=== PATIENT | male | born 1970 | race African-American/Black ===

== ENCOUNTER 2020-10-25 19:48 | Emergency (ER) | payer MEDICAID ==
[~2020-10-25] VITALS: Ht 175.3 cm; Wt 74.0 kg
[2020-10-25] MEDS ORDERED: BICT1TAB PO (19:59)
[2020-10-25] MEDS ORDERED: FOLI0.8C PO (20:00)
[2020-10-25] MEDS ORDERED: OXYC10TA PO (20:00)
[2020-10-25] MEDS ORDERED: ALBU2.5V8 IH (20:00)
[2020-10-25] MEDS ORDERED: CITA10TA8 PO (20:01)
[2020-10-25] MEDS ORDERED: QUET50TA5 PO (20:01)
[2020-10-25] MEDS ORDERED: MIRT-34 PO (20:01)
[2020-10-25] MEDS ORDERED: ONDANSETRON PF 4 MG/2 ML VIAL. IVP ONE (20:15)
[2020-10-25] MEDS ORDERED: HYDROmorphone 2 MG/ML VIAL IVP ONE (20:15)
[2020-10-25] MEDS ORDERED: diphenhydrAMINE 50 MG/ML VIAL IVP ONE (20:15)
[2020-10-25] MEDS ORDERED: IV NORMAL SALINE 1000ML BAG 1,000 ML IV ONE (20:15)
[2020-10-25 20:54] LABS: BASO # 0.2 x10^3/uL (0.0-0.2); BASO % 2 % (0-3); EOS # 0.2 x10^3/uL (0.0-0.7); EOS % 2 % (0-3); HEMATOCRIT 29.9 % (39.0-53.0); HEMOGLOBIN 10.3 g/dL (13.0-17.5); LYMPH # 4.5 x10^3/uL (1.0-4.8); LYMPH % 45 % (24-48); MEAN CORPUSCULAR HEMOGLOBIN 27 pg (25-35); MEAN CORPUSCULAR HGB CONC 34 g/dL (31-37); MEAN CORPUSCULAR VOLUME 79 fL (79-100); MONO # 0.8 x10^3/uL (0.0-1.1); MONO % 8 % (0-9); NEUT # 4.3 x10^3/uL (1.8-7.7); NEUT % 43 % (31-73); PLATELET COUNT 385 x10^3/uL (140-400); RED BLOOD COUNT 3.76 x10^6/uL (4.30-5.70); RED CELL DISTRIBUTION WIDTH 20.3 % (11.5-14.5)
[2020-10-25 21:01] VITALS: BP 136/83
[2020-10-25 21:08] LABS: CALCIUM 8.1 mg/dL (8.5-10.1); CREATININE 0.7 mg/dL (0.7-1.3); GFR 143.9; POTASSIUM 3.5 mmol/L (3.5-5.1)
[2020-10-25 21:11] LABS: ALBUMIN 3.4 g/dL (3.4-5.0); TOTAL BILIRUBIN 0.5 mg/dL (0.2-1.0); TOTAL PROTEIN 6.9 g/dL (6.4-8.2)
[2020-10-25 21:30] LABS: % BANDS 5 % (0-9); % BASOS 1 % (0-3); % EOS 2 % (0-5); % LYMPHS 49 % (24-48); % METAS 1 % (0-0); % MONOS 9 % (0-10); % SEGS 33 % (35-66)
[2020-10-25 21:31] LABS: PLT ESTIMATE ADEQUATE (ADEQUATE); POLYCHROMASIA SLIGHT
[2020-10-25 21:32] LABS: ANISOCYTOSIS MOD; TARGET CELLS MANY
--- NOTE | 2020-10-25 21:52 | PHYS DOC ---
Past Medical History Past Medical History: Anxiety, Arthritis, Asthma, Bipolar, Depression, HIV, Sickle Cell Disease, Other (VIPUL SADLER CONFIGURATION MANAGEMENT ARCHITECT) Past Surgical History: Other Additional Past Surgical Histo: hernia repair (VIPUL SADLER [employer] MANAGEMENT ARCHITECT) Smoking Status: Never Smoker Alcohol Use: None (VIPUL SADLER CONFIGUR[employer] MANAGEMENT ARCHITECT) General Adult EDM: Chief Complaint: GENERALIZED BODY ACHES HPI: HPI: Patient is a 49 year old male patient with history of HIV, on medications, sickle cell, anxiety, bipolar, depression, who presents to the ED today complaining of moderate generalized pain throughout his body from sickle cell. Patient states this is his normal sickle cell pain presentation. States pain has been going on since last week. He states he was seen at [facility] last week and had some work-up and pain medicines. He states he currently takes oxycodone for pain but ran out of the medicine. Denies any fever. He states he is from [facility] and [facility] [place] [facility] (VIPUL SADLER CONFIGUR[employer] MANAGEMENT ARCHITECT) Review of Systems: Review of Systems: Constitutional: Denies fever or chills. [] Eyes: Denies change in visual acuity. [] HENT: Denies nasal congestion or sore throat. [] Respiratory: Denies cough or shortness of breath. [] Cardiovascular: Denies chest pain or edema. [] GI: Denies abdominal pain, nausea, vomiting, bloody stools or diarrhea. [] : Denies dysuria. [] Musculoskeletal: Reports generalized pain from sickle cell Integument: Denies rash. [] Neurologic: Denies headache, focal weakness or sensory changes. [] Psychiatric: Denies depression or anxiety. [] (VIPUL SADLER CONFIGUR[employer] MANAGEMENT ARCHITECT) Heart Score: C/O Chest Pain: N/A Risk Factors: Risk Factors: DM, Current or recent (<one month) smoker, HTN, HLP, family history of CAD, obesity. Risk Scores: Score 0 - 3: 2.5% MACE over next 6 weeks - Discharge Home Score 4 - 6: 20.3% MACE over next 6 weeks - Admit for Clinical Observation Score 7 - 10: 72.7% MACE over next 6 weeks - Early Invasive Strategies (VIPUL SADLER CONFIG[employer] MANAGEMENT ARCHITECT) Current Medications: Current Medications Medications (Trade) Dose Ordered Sig/Guy Start Time Stop Time Status Last Admin Dose Admin Diphenhydramine HCl (Benadryl) 25 mg 1X ONCE 10/25/20 20:15 10/25/20 20:18 DC 10/25/20 20:33 25 MG Hydromorphone HCl (Dilaudid) 2 mg 1X ONCE 10/25/20 20:15 10/25/20 20:18 DC 10/25/20 20:33 2 MG Ondansetron HCl (Zofran) 4 mg 1X ONCE 10/25/20 20:15 10/25/20 20:18 DC 10/25/20 20:33 4 MG Sodium Chloride 1,000 ml @ 1,000 mls/hr 1X ONCE 10/25/20 20:15 10/25/20 21:14 DC 10/25/20 20:32 1,000 MLS/HR (MUTUNGA,VIPUL M CONFIGURATION MANAGEMENT ARCHITECT) Allergies: Allergies: Allergies Coded Allergies Type Severity Reaction Last Updated Verified acetaminophen Allergy Unknown hives 10/25/20 Yes gabapentin Allergy Unknown "makes me numb" 10/25/20 Yes heparin Allergy Unknown vomiting 10/25/20 Yes hydroxyurea Allergy Unknown vomit 10/25/20 Yes ibuprofen Allergy Unknown hives 10/25/20 Yes ketamine Allergy Unknown vomit 10/25/20 Yes tramadol Allergy Unknown vomit 10/25/20 Yes vancomycin Allergy Unknown vomiting 10/25/20 Yes Uncoded Allergies Type Severity Reaction Last Updated Verified EGG WHITES Allergy Unknown itch real bad 10/25/20 INFLUENZA VACCINE Allergy Unknown itching 10/25/20 (MUTUNGA,VIPUL M CONFIGURATION MANAGEMENT ARCHITECT) Physical Exam: PE: Constitutional: Well developed, well nourished, no acute distress, non-toxic sayda earance. [] HENT: Normocephalic, atraumatic, bilateral external ears normal, oropharynx moist, no oral exudates, nose normal. [] Eyes: PERRLA, EOMI, conjunctiva normal, no discharge. [] Neck: Normal range of motion, no tenderness, supple, no stridor. [] Cardiovascular:Heart rate regular rhythm, no murmur [] Lungs & Thorax: Bilateral breath sounds clear to auscultation [] Abdomen: Bowel sounds normal, soft, no tenderness, no masses, no pulsatile masses. [] Skin: Warm, dry, no erythema, no rash. [] Back: No tenderness, no CVA tenderness. [] Extremities: No tenderness, no cyanosis, no clubbing, ROM intact, no edema. [] Neurologic: Alert and oriented X 3, normal motor function, normal sensory function, no focal deficits noted. [] Psychologic: Affect normal, judgement normal, mood normal. [] (VIPUL SADLER Jose HANSON) Current Patient Data: Labs: Laboratory Tests Test 10/25/20 20:30 White Blood Count 10.0 x10^3/uL (4.0-11.0) Red Blood Count 3.77 x10^6/uL (4.30-5.70) L Hemoglobin 10.3 g/dL (13.0-17.5) L Hematocrit 29.9 % (39.0-53.0) L Mean Corpuscular Volume 79 fL (79-100) Mean Corpuscular Hemoglobin 27 pg (25-35) Mean Corpuscular Hemoglobin Concent 34 g/dL (31-37) Red Cell Distribution Width 20.3 % (11.5-14.5) H Platelet Count 385 x10^3/uL (140-400) Neutrophils (%) (Auto) 43 % (31-73) Lymphocytes (%) (Auto) 45 % (24-48) Monocytes (%) (Auto) 8 % (0-9) Eosinophils (%) (Auto) 2 % (0-3) Basophils (%) (Auto) 2 % (0-3) Neutrophils # (Auto) 4.3 x10^3/uL (1.8-7.7) Lymphocytes # (Auto) 4.5 x10^3/uL (1.0-4.8) Monocytes # (Auto) 0.8 x10^3/uL (0.0-1.1) Eosinophils # (Auto) 0.2 x10^3/uL (0.0-0.7) Basophils # (Auto) 0.2 x10^3/uL (0.0-0.2) Segmented Neutrophils % 33 % (35-66) L Band Neutrophils % 5 % (0-9) Lymphocytes % 49 % (24-48) H Monocytes % 9 % (0-10) Eosinophils % 2 % (0-5) Basophils % 1 % (0-3) Metamyelocytes % 1 % (0-0) H Platelet Estimate Adequate (ADEQUATE) Polychromasia Slight Anisocytosis Mod Target Cells Many Absolute Reticulocyte Count 0.132 x10^6/uL (0.020-0.120) Percent Reticulocyte Count 3.5 % (0.5-2.3) H Immature Reticulocyte Fraction 0.60 (0.20-0.60) Sodium Level 143 mmol/L (136-145) Potassium Level 3.5 mmol/L (3.5-5.1) Chloride Level 108 mmol/L (98-107) H Carbon Dioxide Level 24 mmol/L (21-32) Anion Gap 11 (6-14) Blood Urea Nitrogen 7 mg/dL (8-26) L Creatinine 0.7 mg/dL (0.7-1.3) Estimated GFR (Cockcroft-Gault) 143.9 BUN/Creatinine Ratio 10 (6-20) Glucose Level 84 mg/dL (70-99) Calcium Level 8.1 mg/dL (8.5-10.1) L Total Bilirubin 0.5 mg/dL (0.2-1.0) Aspartate Amino Transferase (AST) 21 U/L (15-37) Alanine Aminotransferase (ALT) 14 U/L (16-63) L Alkaline Phosphatase 114 U/L (46-116) Total Protein 6.9 g/dL (6.4-8.2) Albumin 3.4 g/dL (3.4-5.0) Albumin/Globulin Ratio 1.0 (1.0-1.7) Laboratory Tests 10/25/20 20:30 Laboratory Tests 10/25/20 20:30 Vital Signs: Vital Signs Date Time Temp Pulse Resp B/P (MAP) Pulse Ox O2 Delivery O2 Flow Rate FiO2 10/25/20 20:33 96 Room Air 10/25/20 19:54 98.3 80 18 136/86 (103) 98.3 (VIPUL SADLER [employer] MANAGEMENT [employer]CHITECT) EKG: EKG: [] (VIPUL SADLER [employer]UR[employer] MANAGEMENT ARCHITECT) Radiology/Procedures: Radiology/Procedures: [] (VIPUL SADLER APRN) Course & Med Decision Making: Course & Med Decision Making Pertinent Labs and Imaging studies reviewed. (See chart for details) This is a 49-year-old male patient with history of sickle cell presenting today complaining of generalized pain throughout his body. Patient reports this is his normal presentation for sickle cell. He is requesting Dilaudid 2 mg, Zofran, Benadryl. He also wants lab work and IV fluids. He was seen at [facility] last week for the same pain. See HPI. Labs were done, we have nothing to compare with specifically reticulocyte count to see his baseline. He currently feels better after IV fluids and pain management. He was discharged to home. (VIPUL SADLER APRN) Course & Med Decision Making The chart was reviewed. I did not see the patient. The MLP evaluated and treated the patient independently. I was available for consult. (JANINE BLUE DO) Dragon Disclaimer: Dragon Disclaimer: This electronic medical record was generated, in whole or in part, using a voice recognition dictation system. (VIPUL SADLER APRN) Departure Departure Impression: Primary Impression: Sickle cell anemia with pain Disposition: HOME / SELF CARE / HOMELESS Condition: STABLE Referrals: UNKNOWN PCP NAME (PCP) Please follow-up with your sickle cell clinic Patient Instructions: Sickle Cell Anemia-Brief Additional Instructions: You were evaluated for sickle cell pain. Please follow-up with your sickle cell clinic as soon as possible. VIPUL SADLER APRN October 25, 2020 21:52 JANINE BLUE DO October 26, 2020 18:10
== END 2020-10-25 21:55 | disposition home or self-care (01) ==
LOC: ER 19:48
DX: D57.00 Hb-SS disease with crisis, unspecified (principal); F31.9 Bipolar disorder, unspecified; J45.909 Unspecified asthma, uncomplicated; Z88.1 Allergy status to other antibiotic agents; Z88.4 Allergy status to anesthetic agent; Z88.6 Allergy status to analgesic agent; Z88.8 Allergy status to other drugs, medicaments and biological substances; Z91.018 Allergy to other foods
CPT/HCPCS: 36415; 80053; 85007; 85025; 85045; 96361; 96374; 96375; 99284; J1170; J1200; J2405; J7030